=== PATIENT | female | born 1970 ===

== ENCOUNTER 2022-08-29 08:04 | Outpatient (CLI) | payer MEDICARE, SELFPAY ==
--- NOTE | ~2022-08-29 | MR_ITS ---
EXAMINATION: MR knee LT wo con DATE: 08/29/2022 08:44 INDICATION: Left knee pain TECHNIQUE: Magnetic resonance imaging (MRI) of the left knee was performed without intravenous contra st. Sequences included coronal PD-weighted FSE, coronal PD-weighted FS FSE, sagittal T2-weighted FSE , sagittal PD-weighted FS FSE and axial PD weighted fat saturated FSE. COMPARISON: None. FINDINGS: Medial compartment: Longitudinal vertical tear plane extending to the inferior articular surface at the peripheral most a spect of the posterior horn of the medial meniscus. Shallow chondral surface irregularity at the ante rior weightbearing medial femoral condyle. Remaining cartilage in the medial compartment is normal. A rticular cartilage is normal. Lateral compartment: Lateral meniscus is normal. Partial-thickness cartilage loss with smooth chondral surface along the p osterior weightbearing lateral femoral condyle. Patellofemoral compartment: Horizontal band of deep chondral fissuring/fibrillation suggestion of early crabmeat like appearance extending laterally from the midportion of the apical ridge across the junction of the mid to inferio r thirds of the lateral facet. Mild partial-thickness cartilage loss with smooth chondral surface south ng the cephalad aspect of the medial facet. Trochlear cartilage is normal. Ligaments and tendons: Anterior and posterior cruciate ligaments are normal. The medial collateral ligament and fibular isha ateral ligament complex are normal. The extensor mechanism is normal. The visualized medial and later al hamstring tendons as well as the iliotibial band are normal. Fluid: Small knee joint effusion at the suprapatellar pouch. There is subcutaneous edema surrounding a trace amount of fluid in the prepatellar bursa consistent with mild bursitis. No loose osteochondral say s identified. Osseous/other: Small low signal intensity bone island at the medial femoral condyle. Otherwise normal marrow signal with no fracture or pathologic marrow replacing process. IMPRESSION: 1. Longitudinal vertical tear in the peripheral third of the posterior root of the medial meniscus. 2. Mild medial and patellofemoral compartment osteoarthritis with regions of moderate grade chondroma lacia along the anterior weightbearing medial femoral condyle and more prominently at the patellar ap ical ridge and lateral facet. 3. Small left knee joint effusion. 4. Prepatellar bursitis. Reviewed, dictated and finalized at location [facility] IMPRESSION: 1. Longitudinal vertical tear in the peripheral third of the posterior root of the medial meniscus. 2. Mild medial and patellofemoral compartment osteoarthritis with regions of mo derate grade chondromalacia along the anterior weightbearing medial femoral con dyle and more prominently at the patellar apical ridge and lateral facet. 3. Small left knee joint effusion. 4. Prepatellar bursitis.
== END 2022-08-29 08:05 ==
LOC: MICIMG 08:05
PROVIDERS: PCP Family Medicine; Visit Provider Orthopaedic Surgery
DX: M25.562 Pain in left knee (principal); G89.29 Other chronic pain; S83.242A Other tear of medial meniscus, current injury, left knee, initial encounter; M17.12 Unilateral primary osteoarthritis, left knee; M94.262 Chondromalacia, left knee; M25.462 Effusion, left knee; M71.562 Other bursitis, not elsewhere classified, left knee
CPT/HCPCS: 73721